=== PATIENT | male | born 1990 | race African-American/Black ===

== ENCOUNTER 2016-08-23 11:04 | Emergency (ER) | payer OTHER ==
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
== END 2016-08-23 13:39 | disposition home or self-care (01) ==
LOC: MADERS 11:04
DX: S93.491A Sprain of other ligament of right ankle, initial encounter (principal); S16.1XXA Strain of muscle, fascia and tendon at neck level, initial encounter; S00.93XA Contusion of unspecified part of head, initial encounter; V69.9XXA Occupant (driver) (passenger) of heavy transport vehicle injured in unspecified traffic accident, initial encounter
CPT/HCPCS: 70450; 72125